=== PATIENT | female | born 1960 | race Caucasian/White ===

== ENCOUNTER → 2016-06-15 | Day surgery (SDC) | payer BC ==
[~2016-06-15] MED LIST: AMLODIPINE BESYL5 MG PO; ASPIRIN PO; CELEXA20 MG PO; CRESTOR10 MG; DITROPAN5 MG PO; LEVOTHYROXINE75 MC1 PO; METFORMIN PO; METOPROLOL SUCC25 MG PO; NEXIUM PO; NORVASC PO; OXYCONTIN PO; PACERONE PO; SYNTHROID PO; VESICARE PO; VITAMIN D-32000 UNI1 PO; ZOCOR PO; ZOFRAN PO
--- NOTE | ~2016-06-15 | OR ---
Unit #: [id number] #: [id number] Patient: TONG DENNIS [id number] [address] [place], [place] [address] [id number] MR#: [id number] NAME: TONG DENNIS ROOM: Date of Procedure: 06/15/2016 Admission Date: 06/15/2016 Surgeon: Omar Almanza Jr., M.D. : 1960 Attending Physician: Omar Almanza Jr., M.D. Referring Physician: Omar Almanza Jr., M.D. Primary Care Physician: Randi Iqbal M.D. OPERATIVE REPORT INDICATIONS FOR PROCEDURE The patient is a 56-year-old white female, who presents desiring screening colonoscopy. She had a colonoscopy approximately 10 years ago or longer and this was fairly not remarkable. She has had recent problems with some intermittent diarrhea and was felt she needed a repeat colonoscopy. She is brought in this time at her request for this procedure. She understands the procedure including the risks, including that of perforation and bleeding, and consents. PREOPERATIVE DIAGNOSIS Desired screening colonoscopy, rule out pathology. 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 She had a small arteriovenous malformation of the cecum. ANESTHESIA MAC anesthesia. PROCEDURE PERFORMED Flexible colonoscopy to the distal ileum with biopsies at 50 cm to evaluate an area that appeared to be colitis. DESCRIPTION OF PROCEDURE The patient was positioned in Sandhu position with left side down. After being given MAC anesthesia, digital rectal examination was performed, which revealed no palpable masses or tenderness. No blood or stool within the rectal ampulla. The Olympus colonoscope was advanced through the anal canal up the rectum and retroflexed down to the area of the anorectal region. There was no evidence of any fissures. No significant internal hemorrhoids. The scope was then straightened and advanced up in the rectosigmoid into the sigmoid and approximately 50 cm, there was some mucosa that appeared to be slightly erythematous without ulceration compatible with mild localized nonulcerative colitis. Several biopsies were taken from this without significant bleeding. The scope was then advanced around the descending colon around the splenic flexure and the transverse colon around the hepatic flexure and ascending colon, down in the area of the cecum. There was a small AVM of the cecum felt to be of no major significance. The scope was advanced up the distal ileum approximately 10 to 12 cm. There was no evidence of any ileitis or inflammatory bowel disease. The scope was slowly removed. There were no Unit #: [id number] #: [id number] Patient: TONG DENNIS tumors, no polyps, no cancer, no colitis except for the one area described above at 50 cm. No evidence of any diverticulosis or diverticulitis. The caliber of the colon appeared normal throughout. The scope was removed. The patient tolerated the procedure well and discharged in satisfactory condition. Dictated by... Omar Almanza Jr., M.D. JMB/jusitno TD: 06/15/2016 22:38 JOB #: [id number] CC: Randi Iqbal M.D. OPERATIVE REPORT Page 1 of 1 X Omar Almanza MD X PROCEDURE OPERATIVE NOTE
== END | disposition home or self-care (01) ==
LOC: COPS 05:49
DX: Z12.11 Encounter for screening for malignant neoplasm of colon (principal); K52.89 Other specified noninfective gastroenteritis and colitis; Q27.33 Arteriovenous malformation of digestive system vessel; E66.01 Morbid (severe) obesity due to excess calories; E11.9 Type 2 diabetes mellitus without complications; Z79.84 Long term (current) use of oral hypoglycemic drugs; I10 Essential (primary) hypertension; E03.9 Hypothyroidism, unspecified; Z87.891 Personal history of nicotine dependence; Z90.710 Acquired absence of both cervix and uterus
CPT/HCPCS: 82947; 88305; 88313; J2250